=== PATIENT | male | born 1985 | race Caucasian/White ===

== ENCOUNTER 2020-05-02 09:06 | Emergency (ER) | payer BC ==
[~2020-05-02] VITALS: Ht 180.3 cm; Wt 95.9 kg
[~2020-05-02 09:06] MED LIST: BAYER CHEWABLE81 MG PO; NICODERM CQ1 EAC3 TRANSDERM; OXYCODONE HCL5 M1 PO
[2020-05-02 09:09] VITALS: Ht 180.3 cm; Wt 95.9 kg
[2020-05-02] MEDS ORDERED: TYLENOL W/CODEI1 TAB (09:12)
[2020-05-02 09:50] LABS: CALC OSMOLALITY 273 mosm/kg (275-300); CALCIUM 8.9 mg/dL (8.5-10.1); CARBON DIOXIDE 27.6 mmol/L (21.0-32.0); CHLORIDE - SERUM 99 mmol/L (98-107); CREATININE - SERUM 1.1 mg/dL (0.6-1.3); GLUCOSE 79 mg/dL (74-106); POTASSIUM - SERUM 3.7 mmol/L (3.5-5.1); SODIUM 135 mmol/L (136-145); UREA NITROGEN 26 mg/dL (7-18); eGFR NON AFRICAN AMERICAN 81 mL/min (90-120)
[2020-05-02 09:56] LABS: ALBUMIN 3.4 g/dL (3.4-5.0); ALKALINE PHOSPHATASE 97 U/L (30-120); ALT (SGPT) 41 U/L (10-68); BILIRUBIN - TOTAL 0.81 mg/dL (0.2-1.3); MAGNESIUM - SERUM 1.9 mg/dL (1.8-2.4); PROTEIN - SERUM 7.3 g/dL (6.4-8.2)
[2020-05-02 10:05] LABS: UDS - AMPHET POSITIVE QUAL (NEGATIVE); UDS - BARB NEGATIVE QUAL (NEGATIVE); UDS - BENZO NEGATIVE QUAL (NEGATIVE); UDS - COCAINE NEGATIVE QUAL (NEGATIVE); UDS - OPIATE POSITIVE QUAL (NEGATIVE); UDS - PCP NEGATIVE QUAL (NEGATIVE); UDS - THC NEGATIVE QUAL (NEGATIVE)
[2020-05-02 10:23] LABS: BASOPHILS 0.2 % (0-2); EOSINOPHILS 0.6 % (0-7); HEMATOCRIT 37.6 % (42.0-54.0); HEMOGLOBIN 12.9 g/dL (13.5-17.5); IMMATURE GRANULOCYTES 0.3 % (0-5); LYMPHOCYTE ABS# 1.49 10x3/uL (1.32-3.57); LYMPHOCYTES 11.8 % (15-50); MCH 31.4 pg (26.0-34.0); MCHC 34.3 g/dL (31.0-37.0); MCV 91.5 fL (80.0-100.0); MEAN PLATELET VOLUME 8.9 fL (7.4-10.4); MONOCYTES 10.4 % (2-11); NEUTROPHIL ABS# 9.67 10x3/uL (1.78-5.38); NEUTROPHILS 76.7 % (40-80); PLATELET COUNT 310 10x3/uL (130-400); RBC 4.11 10x6/uL (4.20-6.10); RDW 12.8 % (11.5-14.5); WBC 12.6 10x3/uL (4.8-10.8)
[2020-05-02 10:37] LABS: BACTERIA FEW HPF (NONE SEEN); BILIRUBIN NEGATIVE (NEGATIVE); KETONE MODERATE mg/dL (NEGATIVE); NITRITE NEGATIVE (NEGATIVE); UROBILINOGEN NORMAL mg/dL (< 2); WHITE CELLS - URINE NONE SEEN HPF (0-1)
[2020-05-02 12:24] VITALS: BP 122/73
[2020-05-02 12:40] LABS: SARS-CoV-2 ANTIGEN NEGATIVE- SARS-COV-2 (NEGATIVE)
[2020-05-02] MEDS ORDERED: CLEOCIN HCL300 MG PO (12:45)
== END 2020-05-02 14:44 ==
LOC: D.ER 09:06
PROVIDERS: Emergency Medicine
DX: F20.9 Schizophrenia, unspecified (principal); D72.829 Elevated white blood cell count, unspecified; F15.10 Other stimulant abuse, uncomplicated; R45.851 Suicidal ideations; R44.0 Auditory hallucinations

== ENCOUNTER 2020-05-29 21:19 | Emergency (ER) | payer BC ==
[~2020-05-29] VITALS: Ht 180.3 cm; Wt 86.4 kg
[~2020-05-29 21:19] MED LIST changes: +CLEOCIN HCL300 MG PO; +TYLENOL W/CODEI1 TAB
[2020-05-29 21:34] LABS: BASOPHILS 0.2 % (0-2); EOSINOPHILS 1.4 % (0-7); HEMATOCRIT 42.5 % (42.0-54.0); HEMOGLOBIN 14.3 g/dL (13.5-17.5); IMMATURE GRANULOCYTES 0.2 % (0-5); LYMPHOCYTE ABS# 1.59 10x3/uL (1.32-3.57); LYMPHOCYTES 14.4 % (15-50); MCH 31.5 pg (26.0-34.0); MCHC 33.6 g/dL (31.0-37.0); MCV 93.6 fL (80.0-100.0); MEAN PLATELET VOLUME 9.5 fL (7.4-10.4); MONOCYTES 7.8 % (2-11); NEUTROPHIL ABS# 8.42 10x3/uL (1.78-5.38); PLATELET COUNT 277 10x3/uL (130-400); RBC 4.54 10x6/uL (4.20-6.10); RDW 13.8 % (11.5-14.5); WBC 11.1 10x3/uL (4.8-10.8)
[2020-05-29 21:40] VITALS: Ht 180.3 cm; Wt 86.4 kg
[2020-05-29 21:43] LABS: CALC OSMOLALITY 279 mosm/kg (275-300); CARBON DIOXIDE 28.5 mmol/L (21.0-32.0); CHLORIDE - SERUM 102 mmol/L (98-107); CREATININE - SERUM 1.1 mg/dL (0.6-1.3); GLUCOSE 92 mg/dL (74-106); POTASSIUM - SERUM 3.8 mmol/L (3.5-5.1); SODIUM 140 mmol/L (136-145); UREA NITROGEN 15 mg/dL (7-18); eGFR NON AFRICAN AMERICAN 81 mL/min (90-120)
[2020-05-29 21:48] LABS: ALBUMIN 3.7 g/dL (3.4-5.0); ALKALINE PHOSPHATASE 89 U/L (30-120); ALT (SGPT) 19 U/L (10-68); BILIRUBIN - TOTAL 0.23 mg/dL (0.2-1.3); PROTEIN - SERUM 7.7 g/dL (6.4-8.2)
[2020-05-29 21:53] LABS: UDS - AMPHET POSITIVE QUAL (NEGATIVE); UDS - BARB NEGATIVE QUAL (NEGATIVE); UDS - BENZO NEGATIVE QUAL (NEGATIVE); UDS - COCAINE NEGATIVE QUAL (NEGATIVE); UDS - OPIATE NEGATIVE QUAL (NEGATIVE); UDS - PCP NEGATIVE QUAL (NEGATIVE); UDS - THC POSITIVE QUAL (NEGATIVE)
[2020-05-29 21:58] LABS: BILIRUBIN NEGATIVE (NEGATIVE); KETONE NEGATIVE (NEGATIVE); NITRITE NEGATIVE (NEGATIVE); UROBILINOGEN NORMAL mg/dL (< 2)
--- NOTE | 2020-05-29 22:08 | NUR ---
DR. MARCELO NOTIFIED AND REVIEWED PT'S BEHAVIOR AND ASSESSMENT RESULTS. PT IS A LOW RISK PER DR. MARCELO. DR. MARCELO STATED TO GIVE RESOURCES TO PT AT TIME OF DISCHARGE. NO FURTHER ORDERS AT THIS TIME. RESOURCES REVIEWED WITH PT AND HE VERBALIZED UNDERSTANDING.
[2020-05-29 23:53] LABS: SARS-CoV-2 ANTIGEN NEGATIVE- SARS-COV-2 (NEGATIVE)
[2020-05-30 05:14] VITALS: BP 137/90
== END 2020-05-30 07:58 ==
LOC: D.ER 21:19
PROVIDERS: Family Medicine
DX: R45.851 Suicidal ideations (principal); F19.10 Other psychoactive substance abuse, uncomplicated

== ENCOUNTER 2020-06-28 06:59 | Emergency (ER) | payer BC ==
[~2020-06-28] VITALS: Ht 180.3 cm; Wt 100.0 kg
[2020-06-28 07:08] VITALS: BP 137/87; Ht 180.3 cm; Wt 100.0 kg
--- NOTE | 2020-06-28 07:55 | NUR ---
PT ADMITS TO [facility] WITH PLAN TO OVERDOSE IF GIVEN PILLS. PT STATES THAT HE HAS BEEN DIAGNOSED WITH SCHIZOPHERNIA AND HE HAS HALLUCINATIONS. PT IS A HIGH RISK PER ASSESSMENT. DR MARCELO AND ATTENDING NOTIFIED AND SITTER ORDERED FOR RISK. PT HAD A PREVIOUS ATTEMPT AT OVERDOSE BUT UNABLE TO GIVE TIMEFRAME. PT IS HOMELESS. PT HAS BEEN TO [facility] FOR INPT TREATMENT BUT HE DOES NOT HAVE OUT PATIENT THERAPY FOLLOW-UP. RESOURCES GIVEN. SAFETY PLAN INITATED.
[2020-06-28 08:21] LABS: CALC OSMOLALITY 274 mosm/kg (275-300); CALCIUM 8.8 mg/dL (8.5-10.1); CARBON DIOXIDE 26.1 mmol/L (21.0-32.0); CHLORIDE - SERUM 103 mmol/L (98-107); GLUCOSE 96 mg/dL (74-106); POTASSIUM - SERUM 3.2 mmol/L (3.5-5.1); SODIUM 138 mmol/L (136-145); UREA NITROGEN 11 mg/dL (7-18); eGFR NON AFRICAN AMERICAN > 90 mL/min (90-120)
[2020-06-28 08:26] LABS: ALBUMIN 3.3 g/dL (3.4-5.0); ALKALINE PHOSPHATASE 79 U/L (30-120); ALT (SGPT) 24 U/L (10-68); BILIRUBIN - TOTAL 0.49 mg/dL (0.2-1.3); MAGNESIUM - SERUM 1.9 mg/dL (1.8-2.4); PROTEIN - SERUM 7.2 g/dL (6.4-8.2)
[2020-06-28 08:27] LABS: ACETAMINOPHEN < 10.0 ug/mL (10.0-30.0)
[2020-06-28 08:28] LABS: SARS-CoV-2 ANTIGEN NEGATIVE- SARS-COV-2 (NEGATIVE)
[2020-06-28 08:28] LABS: BASOPHILS 0.2 % (0-2); EOSINOPHILS 1.8 % (0-7); HEMATOCRIT 39.6 % (42.0-54.0); HEMOGLOBIN 13.3 g/dL (13.5-17.5); IMMATURE GRANULOCYTES 0.2 % (0-5); LYMPHOCYTE ABS# 0.75 10x3/uL (1.32-3.57); MCH 31.4 pg (26.0-34.0); MCHC 33.6 g/dL (31.0-37.0); MCV 93.6 fL (80.0-100.0); MEAN PLATELET VOLUME 9.4 fL (7.4-10.4); MONOCYTES 8.6 % (2-11); NEUTROPHIL ABS# 6.68 10x3/uL (1.78-5.38); NEUTROPHILS 80.2 % (40-80); PLATELET COUNT 237 10x3/uL (130-400); RBC 4.23 10x6/uL (4.20-6.10); WBC 8.3 10x3/uL (4.8-10.8)
[2020-06-28 08:34] LABS: UDS - AMPHET POSITIVE QUAL (NEGATIVE); UDS - BARB NEGATIVE QUAL (NEGATIVE); UDS - BENZO NEGATIVE QUAL (NEGATIVE); UDS - COCAINE NEGATIVE QUAL (NEGATIVE); UDS - OPIATE NEGATIVE QUAL (NEGATIVE); UDS - PCP NEGATIVE QUAL (NEGATIVE); UDS - THC POSITIVE QUAL (NEGATIVE)
[2020-06-28 09:12] LABS: BACTERIA FEW HPF (NONE SEEN); BILIRUBIN NEGATIVE (NEGATIVE); KETONE NEGATIVE (NEGATIVE); NITRITE NEGATIVE (NEGATIVE); SQUAMOUS EPITHELIAL OCC HPF (0-4); UROBILINOGEN 4 mg/dL (< 2); WHITE CELLS - URINE RARE HPF (0-1)
== END 2020-06-28 12:07 ==
LOC: D.ER 06:59
PROVIDERS: Family Medicine
DX: R45.851 Suicidal ideations (principal); F15.10 Other stimulant abuse, uncomplicated; M25.571 Pain in right ankle and joints of right foot; G89.29 Other chronic pain

== ENCOUNTER 2020-07-28 00:48 | Emergency (ER) | payer BC ==
[~2020-07-28] VITALS: Ht 180.3 cm; Wt 81.8 kg
[2020-07-28 00:50] VITALS: Ht 180.3 cm; Wt 81.8 kg
[2020-07-28 01:51] LABS: BASOPHILS 0.2 % (0-2); EOSINOPHILS 0.4 % (0-7); HEMATOCRIT 40.1 % (42.0-54.0); HEMOGLOBIN 13.6 g/dL (13.5-17.5); IMMATURE GRANULOCYTES 0.3 % (0-5); LYMPHOCYTE ABS# 1.48 10x3/uL (1.32-3.57); MCH 30.7 pg (26.0-34.0); MCHC 33.9 g/dL (31.0-37.0); MCV 90.5 fL (80.0-100.0); MEAN PLATELET VOLUME 9.7 fL (7.4-10.4); MONOCYTES 8.6 % (2-11); NEUTROPHIL ABS# 9.69 10x3/uL (1.78-5.38); NEUTROPHILS 78.5 % (40-80); PLATELET COUNT 248 10x3/uL (130-400); RBC 4.43 10x6/uL (4.20-6.10); RDW 13.6 % (11.5-14.5); WBC 12.3 10x3/uL (4.8-10.8)
[2020-07-28 02:08] LABS: ALKALINE PHOSPHATASE 76 U/L (30-120); ALT (SGPT) 34 U/L (10-68); BILIRUBIN - TOTAL 0.44 mg/dL (0.2-1.3); CALC OSMOLALITY 287 mosm/kg (275-300); CALCIUM 8.9 mg/dL (8.5-10.1); CHLORIDE - SERUM 105 mmol/L (98-107); CREATININE - SERUM 1.1 mg/dL (0.6-1.3); GLUCOSE 110 mg/dL (74-106); MAGNESIUM - SERUM 1.8 mg/dL (1.8-2.4); PROTEIN - SERUM 8.1 g/dL (6.4-8.2); SODIUM 142 mmol/L (136-145); UREA NITROGEN 24 mg/dL (7-18); eGFR NON AFRICAN AMERICAN 81 mL/min (90-120)
[2020-07-28 02:17] LABS: CARBON DIOXIDE 26.1 mmol/L (21.0-32.0)
[2020-07-28 02:24] LABS: BILIRUBIN NEGATIVE (NEGATIVE); KETONE TRACE mg/dL (< 1+); NITRITE NEGATIVE (NEGATIVE); SQUAMOUS EPITHELIAL <1 HPF (0-4); UROBILINOGEN 2 mg/dL (< 2); WHITE CELLS - URINE 2 HPF (0-1)
[2020-07-28 02:28] LABS: UDS - AMPHET POSITIVE QUAL (NEGATIVE); UDS - BARB NEGATIVE QUAL (NEGATIVE); UDS - BENZO NEGATIVE QUAL (NEGATIVE); UDS - COCAINE NEGATIVE QUAL (NEGATIVE); UDS - OPIATE POSITIVE QUAL (NEGATIVE); UDS - PCP NEGATIVE QUAL (NEGATIVE); UDS - THC POSITIVE QUAL (NEGATIVE)
[2020-07-28 04:00] VITALS: BP 157/84
[2020-07-28 04:24] LABS: SARS-CoV-2 ANTIGEN NEGATIVE- SARS-COV-2 (NEGATIVE)
== END 2020-07-28 04:42 | disposition home or self-care (01) ==
LOC: D.ER 00:48
PROVIDERS: Family Medicine
DX: R44.1 Visual hallucinations (principal); R44.0 Auditory hallucinations; F15.10 Other stimulant abuse, uncomplicated